=== PATIENT | male | born 1980 | race Two or more races ===

== ENCOUNTER 2022-02-02 16:20 | Inpatient (IN) | payer MEDICAID, OTHER ==
[~2022-02-02] VITALS: Ht 172.7 cm; Wt 101.0 kg
[2022-02-02] MEDS ORDERED: SODIUM CHLORIDE 0.9% 1,000 ML IV ONE (17:45)
[2022-02-02 19:46] LABS: Basophils # (auto) 0.1 10 ^3/uL (0-0.2); Basophils % (auto) 0.6 % (0.0-2.0); Eosinophils # (auto) 0.1 10 ^3/uL (0-0.8); Eosinophils % (auto) 0.6 % (0.0-7.0); Hematocrit 41.1 % (41.0-53.0); Hemoglobin 13.5 g/dL (13.5-17.5); Lymphocytes # (auto) 2.4 10 ^3/uL (0.4-5.4); Lymphocytes % (auto) 21.1 % (10.0-50.0); Mean Corpuscular Hemoglobin 27.3 pg (28.0-32.0); Mean Corpuscular Hgb Conc. 32.7 g/dL (32.0-36.0); Mean Corpuscular Volume 83.5 fL (80.0-100.0); Monocytes # (auto) 1.1 10 ^3/uL (0-1.3); Monocytes % (auto) 9.5 % (0.0-12.0); Neutrophils # (auto) 7.8 10 ^3/uL (1.6-8.6); Neutrophils % (auto) 68.2 % (37.0-80.0); Red Blood Cells 4.92 10^6/uL (4.5-5.90); Red Cell Distribution Width 13.6 % (11.8-14.3); White Blood Cell 11.4 10^3/uL (4.4-10.8)
[2022-02-02 20:05] LABS: Albumin 3.5 g/dL (3.4-5.0); Anion Gap 10 (5-15); Blood Alcohol < 3.0 mg/dL (0-5); Blood Urea Nitrogen 19 mg/dL (7-18); Calcium 8.3 mg/dL (8.5-10.1); Carbon Dioxide 21 mmol/L (21-32); Chloride 108 mmol/L (98-107); Glucose 174 mg/dL (74-106); Potassium 3.6 mmol/L (3.5-5.1); Sodium 139 mmol/L (136-145)
[2022-02-02 20:19] LABS: Alanine Aminotransferase 116 U/L (16-61); Alkaline Phosphatase 103 U/L (45-117); Aspartate Aminotransferase 85 U/L (15-37); BUN/Creatinine Ratio 21.3; Bilirubin, Total 2.5 mg/dL (0.2-1.0); Creatine Kinase IFCC 1261 U/L (39-308); GFR African American 121 mL/min; GFR Non-African American 100 mL/min; Total Protein 7.5 g/dL (6.4-8.2)
[2022-02-02] MEDS ORDERED: SODIUM CHLORIDE 0.9% 2,000 ML IV ONE (21:15)
[2022-02-02] MEDS ORDERED: DOCUSATE SOD 100 MG CAP PO PRN (23:15)
[2022-02-02] MEDS ORDERED: ONDANSETRON HCL 4 MG/2 ML VIAL IV PRN (23:15)
[2022-02-03] MEDS: SODIUM CHLORIDE 0.9% 1,000 ML IV SCH ×4 (00:30→19:15)
[2022-02-03 07:41] LABS: Basophils # (auto) 0.1 10 ^3/uL (0-0.2); Basophils % (auto) 0.5 % (0.0-2.0); Eosinophils # (auto) 0.2 10 ^3/uL (0-0.8); Eosinophils % (auto) 2.1 % (0.0-7.0); Hematocrit 37.8 % (41.0-53.0); Hemoglobin 12.5 g/dL (13.5-17.5); Lymphocytes # (auto) 3.5 10 ^3/uL (0.4-5.4); Lymphocytes % (auto) 33.8 % (10.0-50.0); Mean Corpuscular Hemoglobin 27.5 pg (28.0-32.0); Mean Corpuscular Volume 83.5 fL (80.0-100.0); Monocytes # (auto) 0.8 10 ^3/uL (0-1.3); Monocytes % (auto) 7.6 % (0.0-12.0); Neutrophils # (auto) 5.8 10 ^3/uL (1.6-8.6); Nucleated Red Blood Cells % 0.1 %; Red Blood Cells 4.53 10^6/uL (4.5-5.90); Red Cell Distribution Width 13.4 % (11.8-14.3); White Blood Cell 10.4 10^3/uL (4.4-10.8)
[2022-02-03 07:51] LABS: Potassium 3.7 mmol/L (3.5-5.1)
[2022-02-03 07:59] LABS: BUN/Creatinine Ratio 19.4; Calcium 8.2 mg/dL (8.5-10.1)
[2022-02-03 13:00] VITALS: BP 120/87
[2022-02-03 13:19] VITALS: BP_SYST 128; BP_SYST 138; BP_DIAS 90
[2022-02-03 17:00] VITALS: BP 128/90
[2022-02-03] MEDS: HYDROcodone-ACET 5/325MG TAB PO PRN (19:49)
[2022-02-03 22:00] VITALS: BP 109/69
[2022-02-04] MEDS: SODIUM CHLORIDE 0.9% 1,000 ML IV SCH ×2 (01:55→08:40)
[2022-02-04 05:00] VITALS: BP 107/67
[2022-02-04 09:00] VITALS: BP 108/67
[2022-02-04 09:49] LABS: Basophils # (auto) 0.1 10 ^3/uL (0-0.2); Basophils % (auto) 0.9 % (0.0-2.0); Eosinophils # (auto) 0.1 10 ^3/uL (0-0.8); Eosinophils % (auto) 1.7 % (0.0-7.0); Hematocrit 37.5 % (41.0-53.0); Hemoglobin 12.3 g/dL (13.5-17.5); Lymphocytes % (auto) 30.9 % (10.0-50.0); Mean Corpuscular Hemoglobin 27.6 pg (28.0-32.0); Mean Corpuscular Hgb Conc. 32.9 g/dL (32.0-36.0); Monocytes # (auto) 0.6 10 ^3/uL (0-1.3); Monocytes % (auto) 9.1 % (0.0-12.0); Neutrophils # (auto) 3.7 10 ^3/uL (1.6-8.6); Neutrophils % (auto) 57.4 % (37.0-80.0); Nucleated Red Blood Cells % 0.1 %; Red Blood Cells 4.46 10^6/uL (4.5-5.90); Red Cell Distribution Width 13.8 % (11.8-14.3); White Blood Cell 6.5 10^3/uL (4.4-10.8)
[2022-02-04 12:30] VITALS: BP 114/71
[2022-02-04 17:00] VITALS: BP 120/85
[2022-02-04] MEDS: THIAMINE HCL 100 MG TAB PO SCH (21:16)
[2022-02-04] MEDS: HYDROcodone-ACET 5/325MG TAB PO PRN (21:27)
[2022-02-04 22:00] VITALS: BP 135/79
[2022-02-04] MEDS ORDERED: LORazepam 2MG/ML-1ML VIAL IV PRN (22:45)
[2022-02-05 04:07] LABS: Alcohol, Urine < 3.0 mg/dL (0-10); Amphetamine Screen, Urine NEGATIVE (NEGATIVE); Barbiturate Scree,Urine NEGATIVE (NEGATIVE); Benzodiazephine Screen, Urine NEGATIVE (NEGATIVE); Cannabinoid Screen, Urine NEGATIVE (NEGATIVE); Cocaine Screen, Urine NEGATIVE (NEGATIVE); Opiate Scree,Urine NEGATIVE (NEGATIVE); Phencyclidine Screen, Urine NEGATIVE (NEGATIVE)
[2022-02-05 05:00] VITALS: BP 116/80
[2022-02-05] MEDS ORDERED: LORazepam 2MG/ML-1ML VIAL IV ONE (08:00)
[2022-02-05 09:00] VITALS: BP 126/90
[2022-02-05] MEDS: THIAMINE HCL 100 MG TAB PO SCH ×2 (09:32→22:14)
[2022-02-05 13:00] VITALS: BP 124/84
[2022-02-05] MEDS: SODIUM CHLORIDE 0.9% 1,000 ML IV SCH ×2 (13:21→22:20)
[2022-02-05] MEDS: METOCLOPRAMIDE HCL 10 MG TAB PO SCH ×2 (14:13→22:14)
[2022-02-05 17:00] VITALS: BP 124/64
[2022-02-05 22:00] VITALS: BP 116/64
[2022-02-05] MEDS: HYDROcodone-ACET 5/325MG TAB PO PRN (22:15)
[2022-02-06 05:00] VITALS: BP 131/90
[2022-02-06] MEDS: METOCLOPRAMIDE HCL 10 MG TAB PO SCH ×3 (05:20→21:22)
[2022-02-06] MEDS: SODIUM CHLORIDE 0.9% 1,000 ML IV SCH ×2 (08:33→18:42)
[2022-02-06 08:45] VITALS: BP 128/86
[2022-02-06] MEDS: DexAMETHasone INJECTION 10 MG in D5W 5% 50 ML IV SCH (09:37)
[2022-02-06] MEDS: THIAMINE HCL 100 MG TAB PO SCH ×2 (09:37→21:22)
[2022-02-06] MEDS ORDERED: GADOTERATE MEG 7.5 MMOL/15ml INJ (0.5MMOL/ml) IV ONE (12:16)
[2022-02-06 12:35] VITALS: BP 132/93
[2022-02-06] MEDS: HYDROcodone-ACET 5/325MG TAB PO PRN ×2 (14:13→20:10)
[2022-02-06 16:43] VITALS: BP 117/75
[2022-02-06 22:00] VITALS: BP 128/80
[2022-02-07] MEDS: SODIUM CHLORIDE 0.9% 1,000 ML IV SCH ×2 (04:32→15:13)
[2022-02-07 05:00] VITALS: BP 124/79
[2022-02-07 05:09] LABS: Basophils # (auto) 0.1 10 ^3/uL (0-0.2); Basophils % (auto) 0.4 % (0.0-2.0); Eosinophils # (auto) 0 10 ^3/uL (0-0.8); Hematocrit 41.7 % (41.0-53.0); Hemoglobin 13.6 g/dL (13.5-17.5); Lymphocytes # (auto) 2.8 10 ^3/uL (0.4-5.4); Lymphocytes % (auto) 16.9 % (10.0-50.0); Mean Corpuscular Hgb Conc. 32.5 g/dL (32.0-36.0); Mean Corpuscular Volume 82.9 fL (80.0-100.0); Monocytes # (auto) 1.2 10 ^3/uL (0-1.3); Monocytes % (auto) 7.3 % (0.0-12.0); Neutrophils # (auto) 12.5 10 ^3/uL (1.6-8.6); Neutrophils % (auto) 75.4 % (37.0-80.0); Red Blood Cells 5.03 10^6/uL (4.5-5.90); White Blood Cell 16.6 10^3/uL (4.4-10.8)
[2022-02-07 05:28] LABS: Calcium 9.7 mg/dL (8.5-10.1); Potassium 4.4 mmol/L (3.5-5.1)
[2022-02-07] MEDS: METOCLOPRAMIDE HCL 10 MG TAB PO SCH ×3 (05:29→21:56)
[2022-02-07 05:32] LABS: BUN/Creatinine Ratio 19.8
[2022-02-07 09:00] VITALS: BP 122/73
[2022-02-07] MEDS: DexAMETHasone INJECTION 10 MG in D5W 5% 50 ML IV SCH (09:57)
[2022-02-07] MEDS: THIAMINE HCL 100 MG TAB PO SCH ×2 (09:57→21:56)
[2022-02-07 13:00] VITALS: BP 133/84
[2022-02-07 17:00] VITALS: BP 137/74
[2022-02-07 22:00] VITALS: BP 118/75
[2022-02-08] MEDS: SODIUM CHLORIDE 0.9% 1,000 ML IV SCH ×2 (00:51→11:25)
[2022-02-08 05:00] VITALS: BP 118/80
[2022-02-08 05:30] LABS: Basophils # (auto) 0 10 ^3/uL (0-0.2); Basophils % (auto) 0.2 % (0.0-2.0); Eosinophils # (auto) 0 10 ^3/uL (0-0.8); Eosinophils % (auto) 0.1 % (0.0-7.0); Hematocrit 41.5 % (41.0-53.0); Hemoglobin 13.3 g/dL (13.5-17.5); Lymphocytes # (auto) 3.2 10 ^3/uL (0.4-5.4); Lymphocytes % (auto) 19.8 % (10.0-50.0); Mean Corpuscular Hemoglobin 27.1 pg (28.0-32.0); Mean Corpuscular Hgb Conc. 32.2 g/dL (32.0-36.0); Mean Corpuscular Volume 84.1 fL (80.0-100.0); Monocytes # (auto) 1.5 10 ^3/uL (0-1.3); Monocytes % (auto) 9.1 % (0.0-12.0); Neutrophils # (auto) 11.5 10 ^3/uL (1.6-8.6); Neutrophils % (auto) 70.8 % (37.0-80.0); Nucleated Red Blood Cells % 0.1 %; Red Blood Cells 4.93 10^6/uL (4.5-5.90); Red Cell Distribution Width 14.1 % (11.8-14.3); White Blood Cell 16.2 10^3/uL (4.4-10.8)
[2022-02-08 05:37] LABS: Potassium 4.3 mmol/L (3.5-5.1)
[2022-02-08 05:41] LABS: BUN/Creatinine Ratio 20.9; Calcium 9.3 mg/dL (8.5-10.1)
[2022-02-08] MEDS: METOCLOPRAMIDE HCL 10 MG TAB PO SCH (05:47)
[2022-02-08 09:59] VITALS: BP 116/57
[2022-02-08] MEDS: THIAMINE HCL 100 MG TAB PO SCH (10:14)
[2022-02-08] MEDS: DexAMETHasone INJECTION 10 MG in D5W 5% 50 ML IV SCH (10:15)
== END 2022-02-08 13:19 | disposition home or self-care (01) | DRG 71 ==
LOC: ER 16:20 → EDBD 16:20 → OVERFLOW 23:05 → CENTRAL 02-03 11:52
PROVIDERS: ADMIT Nurse Practitioner Family; ATTEND Internal Medicine Nephrology
DX: G93.41 Metabolic encephalopathy (principal); F15.20 Other stimulant dependence, uncomplicated; M62.82 Rhabdomyolysis; E86.0 Dehydration; E66.9 Obesity, unspecified; G40.209 Localization-related (focal) (partial) symptomatic epilepsy and epileptic syndromes with complex partial seizures, not intractable, without status epilepticus; G47.00 Insomnia, unspecified; G62.9 Polyneuropathy, unspecified; M79.671 Pain in right foot; M79.672 Pain in left foot; R74.01 Elevation of levels of liver transaminase levels; F44.1 Dissociative fugue; K76.0 Fatty (change of) liver, not elsewhere classified; M79.89 Other specified soft tissue disorders; Z20.822 Contact with and (suspected) exposure to COVID-19; Z63.4 Disappearance and death of family member; Z68.30 Body mass index [BMI] 30.0-30.9, adult; Z91.83 Wandering in diseases classified elsewhere
CPT/HCPCS: 36415; 70450; 70553; 71045; 73718; 76705; 80048; 80053; 80307; 80320; 82140; 82550; 82607; 82746; 82962; 84443; 85025; 93005; 95819; 96361; 96374; G0378; J1100; J7060